=== PATIENT | male | born 1970 | race Caucasian/White ===

== ENCOUNTER 2020-10-20 17:52 | Inpatient (IN) | payer OTHER ==
[~2020-10-20] VITALS: Ht 188 cm; Wt 107.0 kg
[2020-10-20] MEDS ORDERED: SODIUM CHLORIDE FLUSH 10ML SYR IVF ONE (19:00)
--- NOTE | 2020-10-20 19:00 | NUR ---
PT CAME IN CO SOB AND BILAT LOWER EXTREMITY SWELLING X 3 DAYS. PT REPORTS HE GETS REALLY SOB WHEN HE STANDS UP. EKG COMPLETE. PT RESTING IN GURNEY. IV STARTED. LABS DRAWN. CONNECTED TO ALL MONITORING EQUIPMENT
[2020-10-20 19:15] LABS: BASOPHILS % (AUTO) 0 % (0-1); EOSINOPHILS % (AUTO) 2 % (1-7); LYMPHOCYTES % (AUTO) 6 % (22-44); MEAN CORPUSCULAR HEMOGLOBIN 30.7 pg (27.5-34.5); MEAN CORPUSCULAR HGB CONC 33.8 g/dL (33.2-36.2); MONOCYTES % (AUTO) 6 % (2-9); NEUTROPHILS % (AUTO) 86 % (42-75); PLATELET COUNT 152 x10^3/uL (130-400); RED BLOOD COUNT 4.92 x10^6/uL (4.38-5.82); RED CELL DISTRIBUTION WIDTH 14.6 % (9.4-14.8)
[2020-10-20 19:18] LABS: ALANINE AMINOTRANSFERASE 27 U/L (12-78); ALBUMIN 4.2 g/dL (3.4-5.0); ANION GAP 11 mmol/L (5-15); CALCIUM 9.2 mg/dL (8.5-10.1); CHLORIDE 102 mmol/L (98-107); CREATININE 1.75 mg/dL (0.7-1.3)
[2020-10-20 19:22] LABS: ALKALINE PHOSPHATASE 115 U/L (45-117); BILIRUBIN,TOTAL 1.6 mg/dL (0.2-1.0); TOTAL PROTEIN 8.4 g/dL (6.4-8.2); TROPONIN I < 0.015 ng/mL (0.000-0.045)
[2020-10-20 19:30] LABS: MD SCAN
[2020-10-20] MEDS ORDERED: OMNIPAQUE 350 MG/ML, 100ML BOTTLE ONE (19:55)
[2020-10-20] MEDS ORDERED: HEPARIN 25,000 UNITS/250ML PMX 250 ML ONE (20:35)
[2020-10-20] MEDS ORDERED: HEPARIN 5,000 UNITS/ML, 1ML ONE (20:35)
--- NOTE | 2020-10-20 20:45 | NUR ---
PT STATES THAT HE IS SUPPOSED TO BE TAKING ELIQUIS FOR HISTORY OF BLOOD CLOTS BUT RAN OUT OF HIS MEDS 6 DAYS AGO. AND THE SWELLING STARTED A FEW DAYS AFTER THAT. PT TO BE ADMITTED. EDUCATED ON PLAN OF CARE
[2020-10-20] MEDS ORDERED: HEPARIN 25,000 UNITS/250ML PMX 250 ML IV PRN (21:00)
[2020-10-20] MEDS ORDERED: HEPARIN 5,000 UNITS/ML, 1ML IV ONE (21:00)
[2020-10-20] MEDS ORDERED: SODIUM CHLORIDE FLUSH 10ML SYR IVF PRN (21:30)
--- NOTE | 2020-10-20 21:43 | NUR ---
PT RESTING IN [facility]. NO NEEDS AT THIS TIME AWAITING ROOM FOR ADMIT
[2020-10-20 22:40] VITALS: BP 132/95
[2020-10-20] MEDS ORDERED: LABETALOL 5MG/ML, 20ML IVPush PRN (23:00)
[2020-10-20] MEDS ORDERED: ACETAMINOPHEN 325 MG TABLET PO PRN (23:00)
[2020-10-20] MEDS ORDERED: MELATONIN 5 MG TABLET PO PRN (23:00)
[2020-10-20] MEDS ORDERED: morphine SULFATE 10 MG/ML, 1ML IVPush PRN (23:00)
[2020-10-20] MEDS ORDERED: ONDANSETRON 2MG/ML, 2ML IVPush PRN (23:00)
[2020-10-20] MEDS ORDERED: ALLO100T30 PO (23:12)
[2020-10-20] MEDS ORDERED: eliquis PO (23:12)
[2020-10-20] MEDS ORDERED: citalopram PO (23:12)
[2020-10-20] MEDS ORDERED: abilify PO (23:12)
[2020-10-21 03:23] LABS: BASOPHILS % (AUTO) 1 % (0-1); EOSINOPHILS % (AUTO) 4 % (1-7); LYMPHOCYTES % (AUTO) 11 % (22-44); MEAN CORPUSCULAR HEMOGLOBIN 31.2 pg (27.5-34.5); MEAN CORPUSCULAR HGB CONC 34.8 g/dL (33.2-36.2); MEAN PLATELET VOLUME 7.9 fL (7.4-10.4); MONOCYTES % (AUTO) 8 % (2-9); NEUTROPHILS % (AUTO) 77 % (42-75); PLATELET COUNT 135 x10^3/uL (130-400); RED BLOOD COUNT 4.55 x10^6/uL (4.38-5.82); RED CELL DISTRIBUTION WIDTH 14.3 % (9.4-14.8)
[2020-10-21 03:24] LABS: MD NO
[2020-10-21 03:31] LABS: ALANINE AMINOTRANSFERASE 24 U/L (12-78); ALBUMIN 3.7 g/dL (3.4-5.0); ANION GAP 10 mmol/L (5-15); CALCIUM 8.7 mg/dL (8.5-10.1); CHLORIDE 100 mmol/L (98-107); CREATININE 1.37 mg/dL (0.7-1.3)
[2020-10-21 03:34] LABS: ALKALINE PHOSPHATASE 104 U/L (45-117); BILIRUBIN,TOTAL 1.5 mg/dL (0.2-1.0); TOTAL PROTEIN 7.8 g/dL (6.4-8.2)
[2020-10-21 03:55] VITALS: BP 151/97
[2020-10-21] MEDS: HEPARIN 5,000 UNITS/ML, 1ML IV PRN ×2 (04:02→11:35)
[2020-10-21] MEDS: LACTATED RINGERS 1,000 ML IV SCH ×2 (08:23→21:20)
[2020-10-21 09:59] VITALS: BP 155/86
[2020-10-21] MEDS ORDERED: LIDOCAINE 1%, 10ML ONE (10:29)
[2020-10-21] MEDS ORDERED: ARIP10TA33 PO (10:58)
[2020-10-21] MEDS ORDERED: APIX5TAB PO (10:58)
[2020-10-21] MEDS ORDERED: CITA40TA12 PO (10:58)
[2020-10-21] MEDS ORDERED: FENTANYL PF 100 MCG/2ML ONE ×2 (11:42→13:39)
[2020-10-21] MEDS ORDERED: FLUMAZENIL 0.1 MG/1 ML, 5ML ONE (11:42)
[2020-10-21] MEDS ORDERED: MIDAZOLAM 1 MG/ML, 5ML ONE ×2 (11:42→13:39)
[2020-10-21] MEDS ORDERED: NALOXONE 1 MG/ML, 2ML ONE (11:42)
[2020-10-21] MEDS ORDERED: HEPARIN 1,000 UNITS/ML, 10ML ONE (11:42)
[2020-10-21] MEDS ORDERED: PROTAMINE SULFATE 10 MG/ML, 25ML ONE (11:43)
[2020-10-21] MEDS ORDERED: ALTEPLASE 10 MG in SODIUM CHLORIDE 0.9% 90 ML IV SCH ×3 (15:00→17:54)
[2020-10-21] MEDS ORDERED: HEPARIN 25,000 UNITS/250ML PMX 250 ML IV PRN ×2 (15:00→15:30)
[2020-10-21] MEDS: ALTEPLASE 10 MG in SODIUM CHLORIDE 0.9% 90 ML IV SCH ×2 (15:17→17:57)
[2020-10-21 17:44] LABS: MEAN CORPUSCULAR HEMOGLOBIN 30.9 pg (27.5-34.5); MEAN CORPUSCULAR HGB CONC 34.3 g/dL (33.2-36.2); PLATELET COUNT 144 x10^3/uL (130-400); RED CELL DISTRIBUTION WIDTH 14.9 % (9.4-14.8)
[2020-10-21 17:52] LABS: ANION GAP 9 mmol/L (5-15); CALCIUM 8.6 mg/dL (8.5-10.1); CHLORIDE 104 mmol/L (98-107); CREATININE 1.07 mg/dL (0.7-1.3)
[2020-10-21 17:59] LABS: INTERNATIONAL NORMALIZED RATIO 1.06 (0.93-1.1); MD YES; PROTHROMBIN TIME 11.3 Seconds (9.6-11.5)
[2020-10-21 18:01] LABS: BAND#(MANUAL) 1.35 x10^3/uL; BANDS%(MANUAL) 9 % (0-7); LYMPHS% (MANUAL) 10 % (22-44); MONOS% (MANUAL) 6 % (2-9); SEG#(MANUAL) 11.25 x10^3/uL (1.8-6.8); SEGS% (MANUAL) 75 % (42-75)
[2020-10-21 18:02] LABS: <PLATELET ESTIMATE> ADEQUATE; <PLT MORPHOLOGY> NORMAL PLT MORPH; <RBC MORPHOLOGY> NORMAL
[2020-10-21] MEDS: HYDROcodone/APAP 5/325 TABLET PO PRN ×2 (18:20→22:53)
[2020-10-21] MEDS: BACLOFEN 10 MG TABLET PO SCH (19:30)
[2020-10-21 23:22] LABS: BASOPHILS % (AUTO) 1 % (0-1); EOSINOPHILS % (AUTO) 2 % (1-7); LYMPHOCYTES % (AUTO) 8 % (22-44); MEAN CORPUSCULAR HEMOGLOBIN 30.6 pg (27.5-34.5); MEAN CORPUSCULAR HGB CONC 34.2 g/dL (33.2-36.2); MONOCYTES % (AUTO) 10 % (2-9); NEUTROPHILS % (AUTO) 80 % (42-75); PLATELET COUNT 123 x10^3/uL (130-400); RED BLOOD COUNT 4.29 x10^6/uL (4.38-5.82); RED CELL DISTRIBUTION WIDTH 14.4 % (9.4-14.8)
[2020-10-21 23:33] LABS: MD NO
[2020-10-21 23:36] LABS: INTERNATIONAL NORMALIZED RATIO 1.21 (0.93-1.1); PROTHROMBIN TIME 12.9 Seconds (9.6-11.5)
[2020-10-22] MEDS: HYDROcodone/APAP 5/325 TABLET PO PRN ×3 (02:22→19:59)
[2020-10-22] MEDS: ALTEPLASE 10 MG in SODIUM CHLORIDE 0.9% 90 ML IV SCH ×2 (04:22→04:23)
[2020-10-22 04:35] LABS: BASOPHILS % (AUTO) 0 % (0-1); EOSINOPHILS % (AUTO) 2 % (1-7); LYMPHOCYTES % (AUTO) 9 % (22-44); MEAN CORPUSCULAR HEMOGLOBIN 30.8 pg (27.5-34.5); MEAN CORPUSCULAR HGB CONC 34.3 g/dL (33.2-36.2); MONOCYTES % (AUTO) 11 % (2-9); NEUTROPHILS % (AUTO) 78 % (42-75); PLATELET COUNT 120 x10^3/uL (130-400); RED BLOOD COUNT 4.18 x10^6/uL (4.38-5.82); RED CELL DISTRIBUTION WIDTH 14.4 % (9.4-14.8)
[2020-10-22 04:40] LABS: MD NO
[2020-10-22 04:42] LABS: ALBUMIN 3.2 g/dL (3.4-5.0); ANION GAP 10 mmol/L (5-15); CALCIUM 8.4 mg/dL (8.5-10.1); CHLORIDE 103 mmol/L (98-107)
[2020-10-22 04:43] LABS: INTERNATIONAL NORMALIZED RATIO 1.23 (0.93-1.1); PROTHROMBIN TIME 13.1 Seconds (9.6-11.5)
[2020-10-22 04:46] LABS: ALANINE AMINOTRANSFERASE 25 U/L (12-78); ALKALINE PHOSPHATASE 94 U/L (45-117); BILIRUBIN,TOTAL 1.7 mg/dL (0.2-1.0); CREATININE 1.06 mg/dL (0.7-1.3); TOTAL PROTEIN 6.7 g/dL (6.4-8.2)
[2020-10-22] MEDS: BACLOFEN 10 MG TABLET PO SCH ×3 (08:05→22:03)
[2020-10-22] MEDS: ARIPIPRAZOLE 10 MG TABLET PO SCH (08:05)
[2020-10-22] MEDS: CITALOPRAM 20 MG TABLET PO SCH (08:05)
[2020-10-22 11:09] LABS: BASOPHILS % (AUTO) 1 % (0-1); EOSINOPHILS % (AUTO) 2 % (1-7); LYMPHOCYTES % (AUTO) 7 % (22-44); MEAN CORPUSCULAR HEMOGLOBIN 30.3 pg (27.5-34.5); MEAN CORPUSCULAR HGB CONC 33.9 g/dL (33.2-36.2); MONOCYTES % (AUTO) 10 % (2-9); NEUTROPHILS % (AUTO) 80 % (42-75); PLATELET COUNT 118 x10^3/uL (130-400); RED BLOOD COUNT 4.02 x10^6/uL (4.38-5.82); RED CELL DISTRIBUTION WIDTH 14.3 % (9.4-14.8)
[2020-10-22 11:13] LABS: MD NO
[2020-10-22 11:21] LABS: INTERNATIONAL NORMALIZED RATIO 1.16 (0.93-1.1); PROTHROMBIN TIME 12.4 Seconds (9.6-11.5)
[2020-10-22] MEDS ORDERED: LIDOCAINE 1%, 10ML ONE (11:30)
[2020-10-22] MEDS ORDERED: MIDAZOLAM 1 MG/ML, 5ML ONE (11:46)
[2020-10-22] MEDS ORDERED: FLUMAZENIL 0.1 MG/1 ML, 5ML ONE (11:46)
[2020-10-22] MEDS ORDERED: FENTANYL PF 100 MCG/2ML ONE (11:46)
[2020-10-22] MEDS ORDERED: PROTAMINE SULFATE 10 MG/ML, 25ML ONE (11:47)
[2020-10-22] MEDS ORDERED: NALOXONE 1 MG/ML, 2ML ONE (11:47)
[2020-10-22] MEDS ORDERED: HEPARIN 1,000 UNITS/ML, 10ML ONE (11:47)
[2020-10-22] MEDS ORDERED: HEPARIN 5,000 UNITS/ML, 1ML IV ONE (14:00)
[2020-10-22] MEDS: HEPARIN 25,000 UNITS/250ML PMX 250 ML IV PRN (14:13)
[2020-10-22] MEDS: LACTATED RINGERS 1,000 ML IV SCH (16:53)
[2020-10-22 17:16] LABS: MEAN CORPUSCULAR HEMOGLOBIN 30.8 pg (27.5-34.5); MEAN CORPUSCULAR HGB CONC 34.3 g/dL (33.2-36.2); MEAN PLATELET VOLUME 8.3 fL (7.4-10.4); PLATELET COUNT 132 x10^3/uL (130-400); RED BLOOD COUNT 3.83 x10^6/uL (4.38-5.82)
[2020-10-22 17:25] LABS: INTERNATIONAL NORMALIZED RATIO 1.14 (0.93-1.1); PROTHROMBIN TIME 12.2 Seconds (9.6-11.5)
[2020-10-22 17:47] LABS: MD YES
[2020-10-22 17:49] LABS: BAND#(MANUAL) 0.17 x10^3/uL; BANDS%(MANUAL) 1 % (0-7); LYMPH#(MANUAL) 1.49 x10^3/uL (1-3.4); LYMPHS% (MANUAL) 9 % (22-44); MONOS#(MANUAL) 1.49 x10^3/uL (0.3-2.7); MONOS% (MANUAL) 9 % (2-9); SEG#(MANUAL) 13.37 x10^3/uL (1.8-6.8); SEGS% (MANUAL) 81 % (42-75)
[2020-10-22 17:50] LABS: <PLATELET ESTIMATE> ADEQUATE; LARGE PLATELETS 1+
[2020-10-22 17:51] LABS: ANISOCYTOSIS 1+; MICROCYTOSIS 1+
[2020-10-22] MEDS: HEPARIN 5,000 UNITS/ML, 1ML IV PRN (20:48)
[2020-10-22 23:12] LABS: BASOPHILS % (AUTO) 1 % (0-1); EOSINOPHILS % (AUTO) 2 % (1-7); LYMPHOCYTES % (AUTO) 11 % (22-44); MEAN CORPUSCULAR HEMOGLOBIN 30.6 pg (27.5-34.5); MEAN CORPUSCULAR HGB CONC 34.5 g/dL (33.2-36.2); MEAN PLATELET VOLUME 8.1 fL (7.4-10.4); MONOCYTES % (AUTO) 12 % (2-9); NEUTROPHILS % (AUTO) 76 % (42-75); PLATELET COUNT 130 x10^3/uL (130-400); RED BLOOD COUNT 3.57 x10^6/uL (4.38-5.82); RED CELL DISTRIBUTION WIDTH 14.1 % (9.4-14.8)
[2020-10-23 00:26] LABS: MD SCAN
[2020-10-23 00:29] LABS: INTERNATIONAL NORMALIZED RATIO 1.11 (0.93-1.1); PROTHROMBIN TIME 11.9 Seconds (9.6-11.5)
[2020-10-23 02:54] LABS: BASOPHILS % (AUTO) 1 % (0-1); EOSINOPHILS % (AUTO) 3 % (1-7); LYMPHOCYTES % (AUTO) 12 % (22-44); MEAN CORPUSCULAR HEMOGLOBIN 31.2 pg (27.5-34.5); MEAN CORPUSCULAR HGB CONC 34.8 g/dL (33.2-36.2); MEAN PLATELET VOLUME 8.3 fL (7.4-10.4); MONOCYTES % (AUTO) 11 % (2-9); NEUTROPHILS % (AUTO) 74 % (42-75); PLATELET COUNT 138 x10^3/uL (130-400); RED BLOOD COUNT 3.51 x10^6/uL (4.38-5.82)
[2020-10-23 02:57] LABS: MD NO
[2020-10-23 03:08] LABS: INTERNATIONAL NORMALIZED RATIO 1.07 (0.93-1.1); PROTHROMBIN TIME 11.4 Seconds (9.6-11.5)
[2020-10-23] MEDS: HEPARIN 5,000 UNITS/ML, 1ML IV PRN ×2 (03:22→11:35)
[2020-10-23 05:36] LABS: CHLORIDE 100 mmol/L (98-107)
[2020-10-23 05:40] LABS: ANION GAP 11 mmol/L (5-15); CALCIUM 8.3 mg/dL (8.5-10.1); CREATININE 0.92 mg/dL (0.7-1.3)
[2020-10-23] MEDS: LACTATED RINGERS 1,000 ML IV SCH (06:16)
[2020-10-23] MEDS: HEPARIN 25,000 UNITS/250ML PMX 250 ML IV PRN (07:04)
[2020-10-23] MEDS: BACLOFEN 10 MG TABLET PO SCH ×3 (08:47→20:27)
[2020-10-23] MEDS: ARIPIPRAZOLE 10 MG TABLET PO SCH (08:47)
[2020-10-23] MEDS: CITALOPRAM 20 MG TABLET PO SCH (08:47)
[2020-10-23 11:15] LABS: INTERNATIONAL NORMALIZED RATIO 1.04 (0.93-1.1); PROTHROMBIN TIME 11.1 Seconds (9.6-11.5)
[2020-10-23 12:07] LABS: BASOPHILS % (AUTO) 1 % (0-1); EOSINOPHILS % (AUTO) 2 % (1-7); LYMPHOCYTES % (AUTO) 10 % (22-44); MEAN CORPUSCULAR HEMOGLOBIN 30.8 pg (27.5-34.5); MEAN CORPUSCULAR HGB CONC 34.5 g/dL (33.2-36.2); MEAN PLATELET VOLUME 8.8 fL (7.4-10.4); MONOCYTES % (AUTO) 11 % (2-9); NEUTROPHILS % (AUTO) 77 % (42-75); PLATELET COUNT 151 x10^3/uL (130-400); RED BLOOD COUNT 3.49 x10^6/uL (4.38-5.82); RED CELL DISTRIBUTION WIDTH 14.2 % (9.4-14.8)
[2020-10-23 12:11] LABS: MD NO
[2020-10-23] MEDS ORDERED: OMNIPAQUE 350 MG/ML, 75ML BOTTLE ONE (13:34)
[2020-10-23] MEDS: HYDROcodone/APAP 5/325 TABLET PO PRN ×2 (13:39→19:24)
[2020-10-23 17:04] LABS: BASOPHILS % (AUTO) 1 % (0-1); EOSINOPHILS % (AUTO) 2 % (1-7); LYMPHOCYTES % (AUTO) 11 % (22-44); MD NO; MEAN CORPUSCULAR HEMOGLOBIN 30.8 pg (27.5-34.5); MEAN CORPUSCULAR HGB CONC 34.5 g/dL (33.2-36.2); MEAN PLATELET VOLUME 8.1 fL (7.4-10.4); MONOCYTES % (AUTO) 10 % (2-9); NEUTROPHILS % (AUTO) 77 % (42-75); PLATELET COUNT 169 x10^3/uL (130-400); RED BLOOD COUNT 3.27 x10^6/uL (4.38-5.82); RED CELL DISTRIBUTION WIDTH 14.1 % (9.4-14.8)
[2020-10-23 17:20] LABS: INTERNATIONAL NORMALIZED RATIO 1.04 (0.93-1.1); PROTHROMBIN TIME 11.1 Seconds (9.6-11.5)
[2020-10-23 23:03] LABS: BASOPHILS % (AUTO) 1 % (0-1); EOSINOPHILS % (AUTO) 2 % (1-7); LYMPHOCYTES % (AUTO) 12 % (22-44); MEAN CORPUSCULAR HEMOGLOBIN 30.7 pg (27.5-34.5); MEAN CORPUSCULAR HGB CONC 34.5 g/dL (33.2-36.2); MEAN PLATELET VOLUME 8.2 fL (7.4-10.4); MONOCYTES % (AUTO) 11 % (2-9); NEUTROPHILS % (AUTO) 74 % (42-75); PLATELET COUNT 179 x10^3/uL (130-400); RED BLOOD COUNT 3.21 x10^6/uL (4.38-5.82); RED CELL DISTRIBUTION WIDTH 14.3 % (9.4-14.8)
[2020-10-23 23:05] LABS: MD NO
[2020-10-23 23:38] LABS: INTERNATIONAL NORMALIZED RATIO 1.02 (0.93-1.1); PROTHROMBIN TIME 10.9 Seconds (9.6-11.5)
[2020-10-24 00:41] VITALS: BP 135/81
[2020-10-24] MEDS: HEPARIN 25,000 UNITS/250ML PMX 250 ML IV PRN ×2 (00:58→14:49)
[2020-10-24] MEDS: HYDROcodone/APAP 5/325 TABLET PO PRN ×4 (01:04→20:45)
[2020-10-24 05:17] LABS: BASOPHILS % (AUTO) 1 % (0-1); EOSINOPHILS % (AUTO) 3 % (1-7); LYMPHOCYTES % (AUTO) 12 % (22-44); MEAN CORPUSCULAR HEMOGLOBIN 31.1 pg (27.5-34.5); MEAN CORPUSCULAR HGB CONC 34.8 g/dL (33.2-36.2); MEAN PLATELET VOLUME 7.7 fL (7.4-10.4); MONOCYTES % (AUTO) 11 % (2-9); NEUTROPHILS % (AUTO) 72 % (42-75); PLATELET COUNT 179 x10^3/uL (130-400); RED BLOOD COUNT 3.15 x10^6/uL (4.38-5.82); RED CELL DISTRIBUTION WIDTH 14.2 % (9.4-14.8)
[2020-10-24 05:27] LABS: ALBUMIN 2.8 g/dL (3.4-5.0); ANION GAP 8 mmol/L (5-15); CALCIUM 8.2 mg/dL (8.5-10.1); CHLORIDE 98 mmol/L (98-107); MD NO
[2020-10-24 05:31] LABS: ALANINE AMINOTRANSFERASE 21 U/L (12-78); ALKALINE PHOSPHATASE 80 U/L (45-117); BILIRUBIN,TOTAL 0.7 mg/dL (0.2-1.0); CREATININE 0.94 mg/dL (0.7-1.3); INTERNATIONAL NORMALIZED RATIO 1.02 (0.93-1.1); PROTHROMBIN TIME 10.9 Seconds (9.6-11.5); TOTAL PROTEIN 6.3 g/dL (6.4-8.2)
[2020-10-24 06:59] VITALS: BP 128/79
[2020-10-24] MEDS: ARIPIPRAZOLE 10 MG TABLET PO SCH (09:07)
[2020-10-24] MEDS: BACLOFEN 10 MG TABLET PO SCH ×3 (09:07→20:46)
[2020-10-24] MEDS: CITALOPRAM 20 MG TABLET PO SCH (09:07)
[2020-10-24] MEDS ORDERED: BISACODYL 10 MG SUPP PR PRN (10:30)
[2020-10-24] MEDS ORDERED: POLYETHYLENE GLYCOL 17 GM PACKET PO PRN (10:30)
[2020-10-24 11:15] LABS: INTERNATIONAL NORMALIZED RATIO 1.01 (0.93-1.1); PROTHROMBIN TIME 10.8 Seconds (9.6-11.5)
[2020-10-24 11:30] LABS: BASOPHILS % (AUTO) 1 % (0-1); EOSINOPHILS % (AUTO) 2 % (1-7); LYMPHOCYTES % (AUTO) 9 % (22-44); MEAN CORPUSCULAR HEMOGLOBIN 31.1 pg (27.5-34.5); MONOCYTES % (AUTO) 11 % (2-9); NEUTROPHILS % (AUTO) 77 % (42-75); PLATELET COUNT 201 x10^3/uL (130-400); RED BLOOD COUNT 3.08 x10^6/uL (4.38-5.82); RED CELL DISTRIBUTION WIDTH 13.9 % (9.4-14.8)
[2020-10-24 11:31] LABS: MD NO
[2020-10-24] MEDS: ALLOPURINOL 300 MG TABLET PO SCH (11:37)
[2020-10-24] MEDS: SENNA/DOCUSATE TABLET PO SCH (11:37)
[2020-10-24 12:29] VITALS: BP 113/76
[2020-10-24 17:37] LABS: BASOPHILS % (AUTO) 1 % (0-1); EOSINOPHILS % (AUTO) 2 % (1-7); LYMPHOCYTES % (AUTO) 10 % (22-44); MEAN CORPUSCULAR HEMOGLOBIN 30.4 pg (27.5-34.5); MEAN CORPUSCULAR HGB CONC 33.8 g/dL (33.2-36.2); MEAN PLATELET VOLUME 7.9 fL (7.4-10.4); MONOCYTES % (AUTO) 10 % (2-9); NEUTROPHILS % (AUTO) 78 % (42-75); PLATELET COUNT 231 x10^3/uL (130-400); RED BLOOD COUNT 3.27 x10^6/uL (4.38-5.82); RED CELL DISTRIBUTION WIDTH 14.4 % (9.4-14.8)
[2020-10-24 17:39] LABS: MD NO
[2020-10-24 17:52] LABS: INTERNATIONAL NORMALIZED RATIO 0.98 (0.93-1.1); PROTHROMBIN TIME 10.5 Seconds (9.6-11.5)
[2020-10-24 19:43] VITALS: BP 129/80
[2020-10-24 23:40] LABS: BASOPHILS % (AUTO) 0 % (0-1); EOSINOPHILS % (AUTO) 2 % (1-7); LYMPHOCYTES % (AUTO) 11 % (22-44); MEAN CORPUSCULAR HEMOGLOBIN 30.5 pg (27.5-34.5); MEAN CORPUSCULAR HGB CONC 34.4 g/dL (33.2-36.2); MEAN PLATELET VOLUME 7.8 fL (7.4-10.4); MONOCYTES % (AUTO) 11 % (2-9); NEUTROPHILS % (AUTO) 75 % (42-75); PLATELET COUNT 227 x10^3/uL (130-400); RED CELL DISTRIBUTION WIDTH 14.2 % (9.4-14.8)
[2020-10-24 23:42] LABS: MD NO
[2020-10-24 23:51] LABS: INTERNATIONAL NORMALIZED RATIO 0.98 (0.93-1.1); PROTHROMBIN TIME 10.5 Seconds (9.6-11.5)
[2020-10-25 01:46] VITALS: BP 118/75
[2020-10-25] MEDS: HEPARIN 25,000 UNITS/250ML PMX 250 ML IV PRN (05:07)
[2020-10-25 05:14] LABS: ANION GAP 7 mmol/L (5-15); BASOPHILS % (AUTO) 0 % (0-1); CALCIUM 8.3 mg/dL (8.5-10.1); CHLORIDE 98 mmol/L (98-107); CREATININE 0.86 mg/dL (0.7-1.3); EOSINOPHILS % (AUTO) 2 % (1-7); LYMPHOCYTES % (AUTO) 9 % (22-44); MEAN CORPUSCULAR HEMOGLOBIN 30.6 pg (27.5-34.5); MEAN CORPUSCULAR HGB CONC 34.8 g/dL (33.2-36.2); MEAN PLATELET VOLUME 7.6 fL (7.4-10.4); MONOCYTES % (AUTO) 12 % (2-9); NEUTROPHILS % (AUTO) 77 % (42-75); PLATELET COUNT 228 x10^3/uL (130-400); RED BLOOD COUNT 3.12 x10^6/uL (4.38-5.82); RED CELL DISTRIBUTION WIDTH 13.8 % (9.4-14.8)
[2020-10-25 05:18] LABS: MD NO
[2020-10-25 05:21] LABS: PROTHROMBIN TIME 10.7 Seconds (9.6-11.5)
[2020-10-25] MEDS: HEPARIN 5,000 UNITS/ML, 1ML IV PRN (06:09)
[2020-10-25] MEDS: HYDROcodone/APAP 5/325 TABLET PO PRN ×4 (06:13→21:22)
[2020-10-25 07:09] VITALS: BP 131/82
[2020-10-25] MEDS: BACLOFEN 10 MG TABLET PO SCH ×3 (09:24→21:22)
[2020-10-25] MEDS: CITALOPRAM 20 MG TABLET PO SCH (09:24)
[2020-10-25] MEDS: ALLOPURINOL 300 MG TABLET PO SCH (09:24)
[2020-10-25] MEDS: SENNA/DOCUSATE TABLET PO SCH (09:25)
[2020-10-25] MEDS: ARIPIPRAZOLE 10 MG TABLET PO SCH (09:25)
[2020-10-25 11:11] LABS: BASOPHILS % (AUTO) 1 % (0-1); EOSINOPHILS % (AUTO) 1 % (1-7); LYMPHOCYTES % (AUTO) 9 % (22-44); MEAN CORPUSCULAR HEMOGLOBIN 30.7 pg (27.5-34.5); MEAN CORPUSCULAR HGB CONC 34.9 g/dL (33.2-36.2); MEAN PLATELET VOLUME 7.6 fL (7.4-10.4); MONOCYTES % (AUTO) 11 % (2-9); NEUTROPHILS % (AUTO) 79 % (42-75); PLATELET COUNT 244 x10^3/uL (130-400); RED BLOOD COUNT 3.05 x10^6/uL (4.38-5.82); RED CELL DISTRIBUTION WIDTH 14.5 % (9.4-14.8)
[2020-10-25 11:13] LABS: MD NO
[2020-10-25 11:22] LABS: INTERNATIONAL NORMALIZED RATIO 1.03 (0.93-1.1)
[2020-10-25] MEDS: APIXABAN 5 MG TABLET PO SCH ×2 (12:56→21:22)
[2020-10-25 13:17] VITALS: BP 121/75
[2020-10-25 14:11] VITALS: BP 118/78
[2020-10-25 17:19] LABS: BASOPHILS % (AUTO) 1 % (0-1); EOSINOPHILS % (AUTO) 1 % (1-7); LYMPHOCYTES % (AUTO) 6 % (22-44); MEAN CORPUSCULAR HEMOGLOBIN 30.7 pg (27.5-34.5); MEAN CORPUSCULAR HGB CONC 34.8 g/dL (33.2-36.2); MEAN PLATELET VOLUME 7.7 fL (7.4-10.4); MONOCYTES % (AUTO) 11 % (2-9); NEUTROPHILS % (AUTO) 81 % (42-75); PLATELET COUNT 253 x10^3/uL (130-400); RED CELL DISTRIBUTION WIDTH 13.8 % (9.4-14.8)
[2020-10-25 17:30] LABS: INTERNATIONAL NORMALIZED RATIO 1.07 (0.93-1.1); PARTIAL THROMBOPLASTIN TIME 32 Seconds (25-31); PROTHROMBIN TIME 11.4 Seconds (9.6-11.5)
[2020-10-25 17:36] LABS: FIBRINOGEN > 713 mg/dL (200-340)
[2020-10-25 18:03] LABS: MD SCAN
[2020-10-25 19:22] VITALS: BP 116/70
[2020-10-25 23:23] LABS: BASOPHILS % (AUTO) 1 % (0-1); EOSINOPHILS % (AUTO) 2 % (1-7); LYMPHOCYTES % (AUTO) 7 % (22-44); MEAN CORPUSCULAR HEMOGLOBIN 30.6 pg (27.5-34.5); MEAN CORPUSCULAR HGB CONC 34.8 g/dL (33.2-36.2); MEAN PLATELET VOLUME 7.3 fL (7.4-10.4); MONOCYTES % (AUTO) 10 % (2-9); NEUTROPHILS % (AUTO) 80 % (42-75); PLATELET COUNT 280 x10^3/uL (130-400); RED BLOOD COUNT 3.12 x10^6/uL (4.38-5.82); RED CELL DISTRIBUTION WIDTH 14.1 % (9.4-14.8)
[2020-10-25] MEDS: MAGNESIUM HYDROXIDE 8%, 30ML UDC PO PRN (23:37)
[2020-10-25 23:40] LABS: INTERNATIONAL NORMALIZED RATIO 1.04 (0.93-1.1); PARTIAL THROMBOPLASTIN TIME 29 Seconds (25-31); PROTHROMBIN TIME 11.1 Seconds (9.6-11.5)
[2020-10-25 23:45] LABS: FIBRINOGEN > 713 mg/dL (200-340)
[2020-10-26 00:01] LABS: MD SCAN
[2020-10-26 02:47] VITALS: BP 116/77
[2020-10-26 05:32] LABS: BASOPHILS % (AUTO) 1 % (0-1); EOSINOPHILS % (AUTO) 2 % (1-7); LYMPHOCYTES % (AUTO) 8 % (22-44); MEAN CORPUSCULAR HEMOGLOBIN 30.9 pg (27.5-34.5); MEAN CORPUSCULAR HGB CONC 34.8 g/dL (33.2-36.2); MONOCYTES % (AUTO) 12 % (2-9); NEUTROPHILS % (AUTO) 78 % (42-75); PLATELET COUNT 278 x10^3/uL (130-400); RED BLOOD COUNT 2.98 x10^6/uL (4.38-5.82)
[2020-10-26 05:37] LABS: MD NO
[2020-10-26 05:44] LABS: ANION GAP 5 mmol/L (5-15); CALCIUM 8.4 mg/dL (8.5-10.1); CHLORIDE 98 mmol/L (98-107)
[2020-10-26 05:45] LABS: INTERNATIONAL NORMALIZED RATIO 1.1 (0.93-1.1); PROTHROMBIN TIME 11.7 Seconds (9.6-11.5)
[2020-10-26 05:47] LABS: CREATININE 0.84 mg/dL (0.7-1.3)
[2020-10-26 07:47] VITALS: BP 124/79
[2020-10-26] MEDS: SENNA/DOCUSATE TABLET PO SCH (10:24)
[2020-10-26] MEDS: CITALOPRAM 20 MG TABLET PO SCH (10:24)
[2020-10-26] MEDS: APIXABAN 5 MG TABLET PO SCH ×2 (10:24→20:52)
[2020-10-26] MEDS: ARIPIPRAZOLE 10 MG TABLET PO SCH (10:24)
[2020-10-26] MEDS: BACLOFEN 10 MG TABLET PO SCH ×3 (10:25→20:52)
[2020-10-26] MEDS: ALLOPURINOL 300 MG TABLET PO SCH (10:33)
[2020-10-26 11:07] LABS: BASOPHILS % (AUTO) 1 % (0-1); EOSINOPHILS % (AUTO) 2 % (1-7); LYMPHOCYTES % (AUTO) 8 % (22-44); MEAN CORPUSCULAR HEMOGLOBIN 30.3 pg (27.5-34.5); MEAN CORPUSCULAR HGB CONC 34.4 g/dL (33.2-36.2); MONOCYTES % (AUTO) 11 % (2-9); NEUTROPHILS % (AUTO) 79 % (42-75); PLATELET COUNT 296 x10^3/uL (130-400); RED BLOOD COUNT 2.95 x10^6/uL (4.38-5.82); RED CELL DISTRIBUTION WIDTH 14.1 % (9.4-14.8)
[2020-10-26 11:08] LABS: MD NO
[2020-10-26 11:21] LABS: INTERNATIONAL NORMALIZED RATIO 1.08 (0.93-1.1); PARTIAL THROMBOPLASTIN TIME 31 Seconds (25-31); PROTHROMBIN TIME 11.5 Seconds (9.6-11.5)
[2020-10-26 11:24] LABS: FIBRINOGEN > 713 mg/dL (200-340)
[2020-10-26 13:39] VITALS: BP 129/80
[2020-10-26] MEDS: HYDROcodone/APAP 5/325 TABLET PO PRN (16:53)
[2020-10-26 17:03] LABS: BASOPHILS % (AUTO) 1 % (0-1); EOSINOPHILS % (AUTO) 2 % (1-7); LYMPHOCYTES % (AUTO) 8 % (22-44); MEAN CORPUSCULAR HEMOGLOBIN 30.2 pg (27.5-34.5); MEAN CORPUSCULAR HGB CONC 34.2 g/dL (33.2-36.2); MEAN PLATELET VOLUME 7.2 fL (7.4-10.4); MONOCYTES % (AUTO) 11 % (2-9); NEUTROPHILS % (AUTO) 78 % (42-75); PLATELET COUNT 309 x10^3/uL (130-400); RED BLOOD COUNT 3.05 x10^6/uL (4.38-5.82); RED CELL DISTRIBUTION WIDTH 14.3 % (9.4-14.8)
[2020-10-26 17:05] LABS: MD NO
[2020-10-26 17:19] LABS: PARTIAL THROMBOPLASTIN TIME 32 Seconds (25-31); PROTHROMBIN TIME 11.8 Seconds (9.6-11.5)
[2020-10-26 17:22] LABS: FIBRINOGEN > 713 mg/dL (200-340)
[2020-10-26 19:06] VITALS: BP 126/86
[2020-10-26] MEDS: MAGNESIUM HYDROXIDE 8%, 30ML UDC PO PRN (20:51)
[2020-10-26 23:52] LABS: BASOPHILS % (AUTO) 0 % (0-1); EOSINOPHILS % (AUTO) 2 % (1-7); LYMPHOCYTES % (AUTO) 9 % (22-44); MEAN CORPUSCULAR HEMOGLOBIN 30.7 pg (27.5-34.5); MEAN CORPUSCULAR HGB CONC 34.4 g/dL (33.2-36.2); MEAN PLATELET VOLUME 7.5 fL (7.4-10.4); MONOCYTES % (AUTO) 12 % (2-9); NEUTROPHILS % (AUTO) 77 % (42-75); PLATELET COUNT 314 x10^3/uL (130-400); RED BLOOD COUNT 2.83 x10^6/uL (4.38-5.82)
[2020-10-26 23:53] LABS: MD NO
[2020-10-27] VITALS (7 sets, daily range): BP systolic 86–127; BP diastolic 52–77
[2020-10-27 00:18] LABS: INTERNATIONAL NORMALIZED RATIO 1.12 (0.93-1.1); PARTIAL THROMBOPLASTIN TIME 34 Seconds (25-31)
[2020-10-27 00:21] LABS: FIBRINOGEN > 713 mg/dL (200-340)
[2020-10-27 05:25] LABS: BASOPHILS % (AUTO) 0 % (0-1); EOSINOPHILS % (AUTO) 3 % (1-7); LYMPHOCYTES % (AUTO) 9 % (22-44); MEAN CORPUSCULAR HEMOGLOBIN 31.6 pg (27.5-34.5); MEAN CORPUSCULAR HGB CONC 35.7 g/dL (33.2-36.2); MEAN PLATELET VOLUME 7.4 fL (7.4-10.4); MONOCYTES % (AUTO) 11 % (2-9); NEUTROPHILS % (AUTO) 78 % (42-75); PLATELET COUNT 314 x10^3/uL (130-400); RED BLOOD COUNT 2.86 x10^6/uL (4.38-5.82); RED CELL DISTRIBUTION WIDTH 14.4 % (9.4-14.8)
[2020-10-27 05:26] LABS: MD NO
[2020-10-27 05:30] LABS: ALBUMIN 2.7 g/dL (3.4-5.0); ANION GAP 8 mmol/L (5-15); CALCIUM 8.6 mg/dL (8.5-10.1); CHLORIDE 96 mmol/L (98-107)
[2020-10-27 05:35] LABS: ALANINE AMINOTRANSFERASE 110 U/L (12-78); ALKALINE PHOSPHATASE 169 U/L (45-117); BILIRUBIN,TOTAL 0.7 mg/dL (0.2-1.0); CREATININE 0.89 mg/dL (0.7-1.3); TOTAL PROTEIN 6.9 g/dL (6.4-8.2)
[2020-10-27 06:09] LABS: INTERNATIONAL NORMALIZED RATIO 1.11 (0.93-1.1); PARTIAL THROMBOPLASTIN TIME 33 Seconds (25-31); PROTHROMBIN TIME 11.9 Seconds (9.6-11.5)
[2020-10-27 06:10] LABS: FIBRINOGEN > 713 mg/dL (200-340)
[2020-10-27] MEDS: APIXABAN 5 MG TABLET PO SCH ×2 (10:48→21:39)
[2020-10-27] MEDS: ALLOPURINOL 300 MG TABLET PO SCH (10:48)
[2020-10-27] MEDS: SENNA/DOCUSATE TABLET PO SCH (10:48)
[2020-10-27] MEDS: BACLOFEN 10 MG TABLET PO SCH ×3 (10:48→21:39)
[2020-10-27] MEDS: CITALOPRAM 20 MG TABLET PO SCH (10:49)
[2020-10-27] MEDS: ARIPIPRAZOLE 10 MG TABLET PO SCH (10:49)
[2020-10-27 11:29] LABS: BASOPHILS % (AUTO) 1 % (0-1); EOSINOPHILS % (AUTO) 1 % (1-7); LYMPHOCYTES % (AUTO) 8 % (22-44); MEAN CORPUSCULAR HEMOGLOBIN 30.8 pg (27.5-34.5); MEAN CORPUSCULAR HGB CONC 34.8 g/dL (33.2-36.2); MONOCYTES % (AUTO) 8 % (2-9); NEUTROPHILS % (AUTO) 82 % (42-75); PLATELET COUNT 344 x10^3/uL (130-400); RED CELL DISTRIBUTION WIDTH 14.1 % (9.4-14.8)
[2020-10-27 11:30] LABS: MD NO
[2020-10-27 11:45] LABS: INTERNATIONAL NORMALIZED RATIO 1.09 (0.93-1.1); PARTIAL THROMBOPLASTIN TIME 32 Seconds (25-31); PROTHROMBIN TIME 11.6 Seconds (9.6-11.5)
[2020-10-27 12:00] LABS: FIBRINOGEN > 713 mg/dL (200-340)
[2020-10-27] MEDS: HYDROcodone/APAP 5/325 TABLET PO PRN (13:35)
[2020-10-27 17:19] LABS: INTERNATIONAL NORMALIZED RATIO 1.11 (0.93-1.1); PARTIAL THROMBOPLASTIN TIME 32 Seconds (25-31); PROTHROMBIN TIME 11.9 Seconds (9.6-11.5)
[2020-10-27 17:39] LABS: FIBRINOGEN > 713 mg/dL (200-340)
[2020-10-27 19:07] LABS: BASOPHILS % (AUTO) 1 % (0-1); EOSINOPHILS % (AUTO) 2 % (1-7); LYMPHOCYTES % (AUTO) 10 % (22-44); MEAN CORPUSCULAR HEMOGLOBIN 30.4 pg (27.5-34.5); MEAN CORPUSCULAR HGB CONC 34.2 g/dL (33.2-36.2); MONOCYTES % (AUTO) 11 % (2-9); NEUTROPHILS % (AUTO) 76 % (42-75); PLATELET COUNT 336 x10^3/uL (130-400); RED BLOOD COUNT 2.89 x10^6/uL (4.38-5.82); RED CELL DISTRIBUTION WIDTH 14.1 % (9.4-14.8)
[2020-10-27 19:09] LABS: MD NO
[2020-10-27 23:10] LABS: BASOPHILS % (AUTO) 1 % (0-1); EOSINOPHILS % (AUTO) 4 % (1-7); LYMPHOCYTES % (AUTO) 11 % (22-44); MEAN CORPUSCULAR HEMOGLOBIN 31.1 pg (27.5-34.5); MEAN PLATELET VOLUME 7.2 fL (7.4-10.4); MONOCYTES % (AUTO) 11 % (2-9); NEUTROPHILS % (AUTO) 74 % (42-75); PLATELET COUNT 343 x10^3/uL (130-400); RED BLOOD COUNT 2.78 x10^6/uL (4.38-5.82); RED CELL DISTRIBUTION WIDTH 14.4 % (9.4-14.8)
[2020-10-27 23:11] LABS: MD NO
[2020-10-27 23:20] LABS: INTERNATIONAL NORMALIZED RATIO 1.07 (0.93-1.1); PARTIAL THROMBOPLASTIN TIME 31 Seconds (25-31); PROTHROMBIN TIME 11.4 Seconds (9.6-11.5)
[2020-10-27 23:27] LABS: FIBRINOGEN > 713 mg/dL (200-340)
[2020-10-28 02:04] VITALS: BP 110/74
[2020-10-28] MEDS: HYDROcodone/APAP 5/325 TABLET PO PRN ×2 (02:10→20:35)
[2020-10-28 05:54] LABS: BASOPHILS % (AUTO) 1 % (0-1); EOSINOPHILS % (AUTO) 4 % (1-7); LYMPHOCYTES % (AUTO) 12 % (22-44); MEAN CORPUSCULAR HEMOGLOBIN 31.1 pg (27.5-34.5); MONOCYTES % (AUTO) 11 % (2-9); NEUTROPHILS % (AUTO) 72 % (42-75); PLATELET COUNT 349 x10^3/uL (130-400); RED BLOOD COUNT 2.75 x10^6/uL (4.38-5.82); RED CELL DISTRIBUTION WIDTH 14.6 % (9.4-14.8)
[2020-10-28 05:56] LABS: MD NO
[2020-10-28 06:08] LABS: FIBRINOGEN > 713 mg/dL (200-340); INTERNATIONAL NORMALIZED RATIO 1.12 (0.93-1.1); PARTIAL THROMBOPLASTIN TIME 33 Seconds (25-31)
[2020-10-28 07:38] VITALS: BP 104/70
[2020-10-28] MEDS: CITALOPRAM 20 MG TABLET PO SCH (09:18)
[2020-10-28] MEDS: SENNA/DOCUSATE TABLET PO SCH (09:18)
[2020-10-28] MEDS: ARIPIPRAZOLE 10 MG TABLET PO SCH (09:19)
[2020-10-28] MEDS: APIXABAN 5 MG TABLET PO SCH ×2 (09:19→20:35)
[2020-10-28] MEDS: BACLOFEN 10 MG TABLET PO SCH ×3 (09:20→20:35)
[2020-10-28] MEDS: ALLOPURINOL 300 MG TABLET PO SCH (09:21)
[2020-10-28 11:00] LABS: BASOPHILS % (AUTO) 1 % (0-1); EOSINOPHILS % (AUTO) 3 % (1-7); LYMPHOCYTES % (AUTO) 11 % (22-44); MEAN CORPUSCULAR HEMOGLOBIN 30.6 pg (27.5-34.5); MEAN CORPUSCULAR HGB CONC 34.5 g/dL (33.2-36.2); MEAN PLATELET VOLUME 6.7 fL (7.4-10.4); MONOCYTES % (AUTO) 11 % (2-9); NEUTROPHILS % (AUTO) 75 % (42-75); PLATELET COUNT 343 x10^3/uL (130-400); RED BLOOD COUNT 2.83 x10^6/uL (4.38-5.82); RED CELL DISTRIBUTION WIDTH 14.6 % (9.4-14.8)
[2020-10-28 11:03] LABS: MD NO
[2020-10-28 11:17] LABS: INTERNATIONAL NORMALIZED RATIO 1.09 (0.93-1.1); PARTIAL THROMBOPLASTIN TIME 31 Seconds (25-31); PROTHROMBIN TIME 11.6 Seconds (9.6-11.5)
[2020-10-28 11:41] LABS: FIBRINOGEN > 713 mg/dL (200-340)
[2020-10-28 13:28] VITALS: BP 122/72
[2020-10-28 17:40] LABS: BASOPHILS % (AUTO) 1 % (0-1); EOSINOPHILS % (AUTO) 3 % (1-7); LYMPHOCYTES % (AUTO) 12 % (22-44); MD NO; MEAN CORPUSCULAR HEMOGLOBIN 29.7 pg (27.5-34.5); MEAN CORPUSCULAR HGB CONC 32.8 g/dL (33.2-36.2); MEAN PLATELET VOLUME 6.8 fL (7.4-10.4); MONOCYTES % (AUTO) 9 % (2-9); NEUTROPHILS % (AUTO) 75 % (42-75); PLATELET COUNT 416 x10^3/uL (130-400); RED CELL DISTRIBUTION WIDTH 14.4 % (9.4-14.8)
[2020-10-28 17:53] LABS: INTERNATIONAL NORMALIZED RATIO 1.07 (0.93-1.1); PARTIAL THROMBOPLASTIN TIME 31 Seconds (25-31); PROTHROMBIN TIME 11.4 Seconds (9.6-11.5)
[2020-10-28 17:58] LABS: FIBRINOGEN > 713 mg/dL (200-340)
[2020-10-28 19:19] VITALS: BP 116/70
[2020-10-28 23:14] LABS: BASOPHILS % (AUTO) 1 % (0-1); EOSINOPHILS % (AUTO) 4 % (1-7); LYMPHOCYTES % (AUTO) 13 % (22-44); MEAN CORPUSCULAR HEMOGLOBIN 30.9 pg (27.5-34.5); MEAN CORPUSCULAR HGB CONC 34.8 g/dL (33.2-36.2); MEAN PLATELET VOLUME 6.9 fL (7.4-10.4); MONOCYTES % (AUTO) 10 % (2-9); NEUTROPHILS % (AUTO) 73 % (42-75); PLATELET COUNT 384 x10^3/uL (130-400); RED BLOOD COUNT 2.71 x10^6/uL (4.38-5.82); RED CELL DISTRIBUTION WIDTH 14.6 % (9.4-14.8)
[2020-10-28 23:15] LABS: MD NO
[2020-10-28 23:29] LABS: INTERNATIONAL NORMALIZED RATIO 1.07 (0.93-1.1); PARTIAL THROMBOPLASTIN TIME 30 Seconds (25-31); PROTHROMBIN TIME 11.4 Seconds (9.6-11.5)
[2020-10-29 00:11] LABS: FIBRINOGEN > 713 mg/dL (200-340)
[2020-10-29 01:07] VITALS: BP 107/66
[2020-10-29 05:23] LABS: BASOPHILS % (AUTO) 1 % (0-1); EOSINOPHILS % (AUTO) 5 % (1-7); LYMPHOCYTES % (AUTO) 15 % (22-44); MEAN CORPUSCULAR HEMOGLOBIN 30.7 pg (27.5-34.5); MEAN CORPUSCULAR HGB CONC 34.5 g/dL (33.2-36.2); MEAN PLATELET VOLUME 6.7 fL (7.4-10.4); MONOCYTES % (AUTO) 10 % (2-9); NEUTROPHILS % (AUTO) 68 % (42-75); PLATELET COUNT 398 x10^3/uL (130-400); RED BLOOD COUNT 2.84 x10^6/uL (4.38-5.82); RED CELL DISTRIBUTION WIDTH 14.7 % (9.4-14.8)
[2020-10-29 05:27] LABS: MD NO
[2020-10-29 05:32] LABS: FIBRINOGEN > 713 mg/dL (200-340); PARTIAL THROMBOPLASTIN TIME 31 Seconds (25-31); PROTHROMBIN TIME 11.7 Seconds (9.6-11.5)
[2020-10-29 07:36] VITALS: BP 113/71
[2020-10-29] MEDS: ARIPIPRAZOLE 10 MG TABLET PO SCH (10:20)
[2020-10-29] MEDS: CITALOPRAM 20 MG TABLET PO SCH (10:20)
[2020-10-29] MEDS: BACLOFEN 10 MG TABLET PO SCH (10:20)
[2020-10-29] MEDS: ALLOPURINOL 300 MG TABLET PO SCH (10:20)
[2020-10-29] MEDS: SENNA/DOCUSATE TABLET PO SCH (10:20)
[2020-10-29] MEDS: APIXABAN 5 MG TABLET PO SCH (10:20)
[2020-10-29 11:41] LABS: BASOPHILS % (AUTO) 1 % (0-1); EOSINOPHILS % (AUTO) 4 % (1-7); LYMPHOCYTES % (AUTO) 11 % (22-44); MEAN CORPUSCULAR HEMOGLOBIN 30.5 pg (27.5-34.5); MEAN CORPUSCULAR HGB CONC 34.2 g/dL (33.2-36.2); MEAN PLATELET VOLUME 6.6 fL (7.4-10.4); MONOCYTES % (AUTO) 7 % (2-9); NEUTROPHILS % (AUTO) 77 % (42-75); PLATELET COUNT 402 x10^3/uL (130-400); RED BLOOD COUNT 2.87 x10^6/uL (4.38-5.82)
[2020-10-29 11:44] LABS: MD NO
[2020-10-29 11:53] LABS: INTERNATIONAL NORMALIZED RATIO 1.07 (0.93-1.1); PARTIAL THROMBOPLASTIN TIME 30 Seconds (25-31); PROTHROMBIN TIME 11.4 Seconds (9.6-11.5)
[2020-10-29 12:00] LABS: FIBRINOGEN > 713 mg/dL (200-340)
[2020-10-29] MEDS ORDERED: ARIP10TA33 PO (12:20)
[2020-10-29] MEDS ORDERED: CITA40TA12 PO (12:20)
[2020-10-29] MEDS ORDERED: APIX5TAB PO (12:20)
[2020-10-29] MEDS ORDERED: ALLO100T30 PO ×2 (12:20)
[2020-10-29 12:39] VITALS: BP 121/76
[2020-11-01] MEDS ORDERED: APIXABAN 5 MG TABLET PO SCH (09:00)
== END 2020-10-29 14:00 | disposition home or self-care (01) | DRG 271 ==
LOC: ED 22:15 → EDIP 22:28 → 4WST 22:29 → CCU 10-21 16:12 → 4NE 10-23 17:58
PROVIDERS: ADMIT Internal Medicine; ATTEND Internal Medicine
PROC: 06CY3ZZ Extirpation of Matter from Lower Vein, Percutaneous Approach (ICD-10-PCS; principal; 2020-10-21)
PROC: 3E03317 Introduction of Other Thrombolytic into Peripheral Vein, Percutaneous Approach (ICD-10-PCS; 2020-10-21)
PROC: B51V1ZZ Fluoroscopy of Other Veins using Low Osmolar Contrast (ICD-10-PCS; 2020-10-21)
DX: I82.220 Acute embolism and thrombosis of inferior vena cava (principal); I82.423 Acute embolism and thrombosis of iliac vein, bilateral; E87.2 Acidosis; I82.210 Acute embolism and thrombosis of superior vena cava; I82.413 Acute embolism and thrombosis of femoral vein, bilateral; I82.433 Acute embolism and thrombosis of popliteal vein, bilateral; N17.9 Acute kidney failure, unspecified; Z20.822 Contact with and (suspected) exposure to COVID-19; D50.0 Iron deficiency anemia secondary to blood loss (chronic); F31.9 Bipolar disorder, unspecified; I87.2 Venous insufficiency (chronic) (peripheral); I95.1 Orthostatic hypotension; R73.9 Hyperglycemia, unspecified; K76.0 Fatty (change of) liver, not elsewhere classified; M10.9 Gout, unspecified; Z79.01 Long term (current) use of anticoagulants; Z86.718 Personal history of other venous thrombosis and embolism; Z91.14 Patient's other noncompliance with medication regimen; Z91.19 Patient's noncompliance with other medical treatment and regimen; Z95.828 Presence of other vascular implants and grafts; Z88.8 Allergy status to other drugs, medicaments and biological substances; Y92.89 Other specified places as the place of occurrence of the external cause
CPT/HCPCS: 36415; 37212; 37214; 96374; 99285; J3490; 71275; 74176; 74177; 76700; 80048; 80053; 83735; 83880; 84100; 84443; 84484; 85025; 85384; 85520; 85610; 85730; 87081; 87635; 93005; 93306; 93970; 99156; 99157; C1725; G0378; J1644; J2250; J2405; J2720; J2997; J3010; Q9967; C1751; C1757; C1760; C1769; C1894; J2310; J7120

== ENCOUNTER 2020-12-11 16:08 | Emergency (ER) | payer OTHER ==
[~2020-12-11] VITALS: Ht 188 cm; Wt 116.0 kg
[~2020-12-11 16:08] MED LIST: ALLO100T30 PO; APIX5TAB PO; ARIP10TA33 PO; CITA40TA12 PO; abilify PO; citalopram PO; eliquis PO
--- NOTE | 2020-12-11 16:27 | NUR ---
EKG IN TRIAGE
--- NOTE | 2020-12-11 16:49 | NUR ---
PATIENT WALKED BACK FROM TRIAGE WITH CHIEF C/O SOB AND HIGH BP. PER PATIENT HE WAS AT CHECK UP, HAS HISTORY OF BLOOD CLOTS AND WAS TOLD HIS BP WAS HIGH. REFERRED TO ED TO RULE OUT PE. MEÑO HOBSON, CALL LIGHT WITHIN REACH.
--- NOTE | 2020-12-11 16:52 | NUR ---
ERMD AT BEDSIDE FOR EVALUATION.
[2020-12-11] MEDS ORDERED: SODIUM CHLORIDE FLUSH 10ML SYR IVF ONE (17:00)
--- NOTE | 2020-12-11 17:09 | NUR ---
20 GAUGE IV STARTED RIGHT AC, BLOOD COLLECTED, AND LABELLED AT BEDSIDE.
[2020-12-11 17:37] LABS: BASOPHILS % (AUTO) 1 % (0-1); EOSINOPHILS % (AUTO) 3 % (1-7); LYMPHOCYTES % (AUTO) 16 % (22-44); MD NO; MEAN CORPUSCULAR HEMOGLOBIN 27.7 pg (27.5-34.5); MEAN CORPUSCULAR HGB CONC 32.8 g/dL (33.2-36.2); MONOCYTES % (AUTO) 6 % (2-9); NEUTROPHILS % (AUTO) 74 % (42-75); PLATELET COUNT 301 x10^3/uL (130-400); RED BLOOD COUNT 3.87 x10^6/uL (4.38-5.82); RED CELL DISTRIBUTION WIDTH 18.1 % (9.4-14.8)
[2020-12-11 17:50] LABS: ALBUMIN 3.8 g/dL (3.4-5.0); ANION GAP 7 mmol/L (5-15); CALCIUM 8.7 mg/dL (8.5-10.1); CHLORIDE 108 mmol/L (98-107); CREATININE 1.08 mg/dL (0.7-1.3)
[2020-12-11 17:54] LABS: TROPONIN I < 0.015 ng/mL (0.000-0.045)
[2020-12-11 18:02] VITALS: BP 124/69
--- NOTE | 2020-12-11 18:04 | NUR ---
PATIENT TO CT SCAN.
[2020-12-11] MEDS ORDERED: OMNIPAQUE 350 MG/ML, 75ML BOTTLE ONE (18:22)
--- NOTE | 2020-12-11 18:35 | NUR ---
PATIENT BACK FROM CAT SCAN, CONNECTED TO ALL MONITORS, NADN, CALL LIGHT WITHIN REACH. WAITING FOR CAT RESULTS.
--- NOTE | 2020-12-11 18:56 | NUR ---
Patient given discharge instructions and they have confirmed that they understand the instructions. Patient ambulatory with steady gait.
== END 2020-12-11 18:57 | disposition home or self-care (01) ==
LOC: ED 16:48
DX: R06.00 Dyspnea, unspecified (principal); R00.0 Tachycardia, unspecified; Z86.718 Personal history of other venous thrombosis and embolism; Z79.01 Long term (current) use of anticoagulants
CPT/HCPCS: 36415; 71275; 80048; 82040; 83880; 84484; 85025; 93005; 99285; Q9967